=== PATIENT | male | born 1980 | race Caucasian/White ===

== ENCOUNTER 2019-04-10 18:41 | Emergency (ER) | payer SELFPAY ==
[~2019-04-10] VITALS: Ht 185.4 cm; Wt 107.0 kg
[2019-04-10 18:43] VITALS: BP 143/74
--- NOTE | 2019-04-10 19:05 | NUR ---
PT RESTING ON GURNEY WITH PHYSICIAN AT BEDSIDE. PT REFUSING TO HAVE LAB WORK OR CXR DONE. WANTS ANOTHER PRESCRIPTION FOR XARELTO, PHYSICIAN EXPLAINED WE CAN GIVE YOU A DOSE HERE TONIGHT BUT IF YOU ARE GOING TO [place] TOMORROW WHERE YOUR MEDICATION WILL BE THERE IS NO REASON TO PROVIDE ANOTHER PRESCRIPTION. PT THEN SAID "JUST FORGET IT IM JUST GOING TO LEAVE." PT STARTED PUTTING ON SHOES AND GETTING DRESSED. PT LEAVING AMA.
== END 2019-04-10 19:13 | disposition left against medical advice (07) ==
LOC: ED 19:07
DX: R07.9 Chest pain, unspecified (principal); M79.89 Other specified soft tissue disorders; Z91.14 Patient's other noncompliance with medication regimen; F17.200 Nicotine dependence, unspecified, uncomplicated; Z86.718 Personal history of other venous thrombosis and embolism
CPT/HCPCS: 93005; 99283

== ENCOUNTER 2019-06-10 01:08 | Emergency (ER) | payer SELFPAY ==
[~2019-06-10] VITALS: Ht 182.9 cm; Wt 100.0 kg
[2019-06-10 04:51] VITALS: BP 138/78
== END 2019-06-10 04:54 | disposition home or self-care (01) ==
LOC: ED 04:40
DX: G89.29 Other chronic pain (principal); I87.2 Venous insufficiency (chronic) (peripheral); R60.0 Localized edema; M79.661 Pain in right lower leg
CPT/HCPCS: 36415; 80053; 85025; 99283